=== PATIENT | male | born 1975 | race Caucasian/White ===

== ENCOUNTER 2017-06-21 00:07 | Emergency (ER) | payer SELFPAY ==
[2017-06-21] MEDS: SODIUM CHLOR 0.9% 1000 ML INJ 1,000 ML IV (00:30)
== END 2017-06-21 09:29 | disposition home or self-care (01) ==
LOC: NEPD 00:07
DX: F10.920 Alcohol use, unspecified with intoxication, uncomplicated (principal)
CPT/HCPCS: 99282